=== PATIENT | female | born 1985 | race Caucasian/White ===

== ENCOUNTER 2016-08-19 09:23 | Emergency (ER) | payer OTHER ==
[~2016-08-19] VITALS: Ht 167.6 cm; Wt 131.5 kg
[2016-08-19 09:29] VITALS: BP 135/57
--- NOTE | 2016-08-19 09:34 | NUR ---
Patient ambulated to bed 07.
--- NOTE | 2016-08-19 09:35 | NUR ---
31/F BIB SELF C/O cough x2 weeks. pt states she feels like she has rapid heart rate and becomes sob. PT STAYED PT WENT TO DENTIST & GOT ANTIBIOTIC X 3 DAYS. PT DENIES N/V/D; SKIN IS PINK/WARM/DRY; AAOX4 WITH EVEN AND STEADY GAIT; LUNGS CLEAR BL; HR EVEN AND REGULAR; PT DENIES ANY FEVER OR CP; PATIENT STATES PAIN OF 0/10 AT THIS TIME; VSS; PATIENT POSITIONED FOR COMFORT; HOB ELEVATED; BEDRAILS UP X2; BED DOWN. ER MD MADE AWARE OF PT STATUS.
--- NOTE | 2016-08-19 09:53 | NUR ---
ER MD DR VELA EVALUATING PT AT BEDSIDE
[2016-08-19 10:01] VITALS: BP 137/62
--- NOTE | 2016-08-19 10:01 | NUR ---
Patient discharged with BP 137/62; PT DENIES ANY HEADACHE OR DIZZINESS AT THIS TIME; NOTIFIED ER MD DR VELA;MD AWARE. Written and verbal after care instructions given and explained. Patient alert, oriented and verbalized understanding of instructions. Ambulatory with steady gait. All questions addressed prior to discharge. ID band removed. Patient advised to follow up with PMD. Rx of PREDNISONE given. Patient educated on indication of medication including possible reaction and side effects. Opportunity to ask questions provided and answered.
== END 2016-08-19 10:01 | disposition home or self-care (01) ==
LOC: MED 09:23
DX: R00.2 Palpitations (principal); R05 Cough
CPT/HCPCS: 93005; 99283